=== PATIENT | male | born 1945 | race Caucasian/White ===

== ENCOUNTER 2023-12-08 05:58 | Emergency (ER) | payer MEDICARE, OTHER, BC, SELFPAY ==
[2023-12-08 06:02] VITALS: BP 159/106
--- NOTE | 2023-12-08 06:48 | ED.GENMED ---
History of Present Illness
General
Chief Complaint: Male Genito-Urinary Symptoms
Source: patient and spouse
Exam Limitations: none
Time Seen by Provider: 12/08/23 06:37
History of Present Illness
History of Present Illness:
Patient started yesterday with a feeling of urinary urgency. Voiding small amounts. Some episodes of spasm. No true abdominal pain no flank pain or back pain no fever. No history of same. Had a bowel movement yesterday.
Past History
Past History
ED Past Medical History: Hypercholesterolemia, Other (Psoriasis) and Other (Osteoporosis)
ED Past Surgical History: Orthopedic (Neck surgery)
Review of Systems
Review of Systems
All Other Systems: Not applicable
Constitutional: Denies fever
ABD/GI: Denies abdominal pain, vomiting or diarrhea
Phy Exam
Physical Exam
Physical Exam:
GENERAL: Alert and oriented in no apparent distress
EYE: Orbits normal.
NECK: Supple
CARDIAC: Regular rate and rhythm without any obvious murmurs.
LUNGS: Clear breath sounds,normal
ABDOMEN: Soft, some vague suprapubic fullness. No rebound or guarding no mass or hernia. Rectal exam with a large smooth prostate. No fecal matter.
NEUROLOGICAL: Alert and oriented , grossly non-focal
SKIN: Warm and dry, no rash or lesion, no discoloration, skin intact.
MUSCULOSKELETAL: No edema,no deformity.Good color
PSYCH: Normal and appropriate interaction.
Course
Orders/Labs/Results
Orders:
Orders
12/08/23 06:47
IV Insert/Care/Rem.- Treatment PRN
12/08/23 06:[address] Non Medication Order As Directed
Physician Order: bladder scan please
Above order entered?: Yes
12/08/23 07:24
Complete Blood Count/With Diff Urgent
Comprehensive Metabolic Panel Urgent
Lipase Urgent
Urinalysis Reflex To Culture Urgent
Date Specimen was Collected: 12/08/23
Time Specimen was Collected: 07:20
Urine Microscopic Reflex Cult Urgent
Urine Culture Urgent
HAILEE Source: U
Specimen Description:
Date Specimen was Collected: 12/08/23
Time Specimen was Collected: 07:20
12/08/23 09:01
Valentine Placement- Treatment ONCE
Reason for insertion: Acute Retention
12/08/23 10:40
CT Abd/Pel (IV only)-DH only Urgent
Comment:
Reason For Exam: Hematuria/lower abdominal pain
0.9% Sodium Chloride 1000 ml [Nss] 1,000 ml IV BOLUS
12/08/23 13:01
Ciprofloxacin HCl [Cipro] 500 mg PO NOW STA
Abnormal Lab Results
12/08/23
07:24
MCH 31.9 H pg
(27.0-31.0)
Absolute Lymphs (auto) 0.9 L 10^3/uL
(1.2-3.4)
Neutrophils % 77.6 H %
(42.2-75.2)
Lymphocytes % 16.8 L %
(20.5-51.1)
Glucose 129 H mg/dl
(70-99)
Leukocyte Esterase Rfl 1+ A
(Negative)
Urine RBC 3-6 A /HPF
(0-2)
Urine Bacteria (Reflex) Few A
(Negative)
12/08/23 07:24
12/08/23 07:24
Vital Signs
Initial and Last Documented VS:
Initial Vital Signs
Pulse Resp BP Pulse Ox
81 18 159/106 97
12/08/23 06:02 12/08/23 06:02 12/08/23 06:02 12/08/23 06:02
Last Documented Vital Signs
Temp Pulse Resp BP Pulse Ox
97.6 F 81 18 154/91 94
12/08/23 08:19 12/08/23 06:02 12/08/23 06:02 12/08/23 11:00 12/08/23 11:00
MDM/Problems Addressed
Differential Diagnosis Includes:
Urinary obstruction versus UTI versus prostatitis versus other pelvic process. Will get a bladder scan. If significantly distended will place catheter to see if her resolved symptoms. If bladder scan is unremarkable we will proceed to CT scan
*Radiology
Radiology exam reviewed: radiology read reviewed (No acute findings on CT. Patient has some findings with chronic bladder outlet issues, enlarged prostate, cysts in the kidneys.)
*Pulse Oximetry
Patient hypoxic: no
*Critical Care Note
Total Time (30-74mins, 75-104mins- exclusive of procedures): Not Applicable
Update Note
Update Note:
Patient still pacing and having to go urinate frequently but only dribbling small amount. Suspect urinary retention. Bladder ultrasound showed 270 cc. Labs stable. Will place Valentine and if this resolves his symptoms we have the answer. If not he
will receive a CT scan.
Patient is remained medically stable. No acute surgical findings on CT. Urine has cleared some. Still hematuria but no clots and no obstruction. Stable for discharge to follow-up. Copy of CT report given to .
ED Attending Note
-
Portions of this chart may have been created with voice recognition software.� Occasional wrong word or��sound alike� substitutions may have occurred due to the inherent limitations of voice recognition software.
Discharge Plan
Departure
Patient Disposition: Home (Routine Discharge)
Date of Disposition: 12/08/23
Time of Disposition: 13:03
Patient with high blood pressure during this ER visit?: Yes
Discharge Problem:
Urinary retention, Prostatic hypertrophy, Hematuria
Instructions: How to Care for Your Valentine Catheter, Male, Blood in the Urine (Hematuria), Adult (DC), Urinary Retention (DC), BLOOD PRESSURE
Prescriptions:
New
ciprofloxacin HCl 500 mg tablet
500 mg PO BID Qty: 14 0RF
tamsulosin [Flomax] 0.4 mg capsule
0.4 mg PO DAILY Qty: 20 0RF
Referrals:
UNKNOWN - PT DOES,NOT KNOW [Family Provider] -
Activity Restrictions/Additional Instructions:
Call your primary physician to arrange for urologic follow-up. Urology follow-up should be within the week
Interventions
Interventions:
*Risk Screen - Suicide Last Done: 12/08/23 06:02
*General Assessment Last Done: 12/08/23 06:02
*Neglect/Abuse Screening Last Done: 12/08/23 06:02
ED- Fall Risk Assessment Last Done: 12/08/23 06:02
*ED COVID-19 Vaccine History Last Done: 12/08/23 06:02
ED-Male Genitourinary Assessment Last Done: 12/08/23 07:21
Discharge Date and Time
Print Language: LUXEMBOURGER
[2023-12-08 07:21] VITALS: BMI 24.6
[2023-12-08 07:40] LABS: % Basophils 0.4 % (0-2); % Eosinophils 0.2 % (0-6); % Immature Granulocytes 0.2 % (0-0.5); % Lymphocytes 16.8 % (20.5-51.1); % Monocytes 4.8 % (1.7-9.3); % Neutrophils 77.6 % (42.2-75.2); Absolute Lymphocytes 0.9 10^3/uL (1.2-3.4); Absolute Monocytes 0.3 10^3/uL (0.1-0.6); Absolute Neutrophils 4.3 10^3/uL (1.4-6.5); Hematocrit 42.8 % (39.0-52.0); Hemoglobin 15.1 g/dL (13.0-18.0); Mean Corp Hgb Conc. 35.3 g/dL (33.0-37.0); Mean Corpuscular Hgb 31.9 pg (27.0-31.0); Mean Corpuscular Volume 90.3 fL (80.0-94.0); Nucleated Red Blood Cells % 0 % (-); Platelet Count 201 10^3/uL (130-400); Red Blood Cell Count 4.74 10^6/uL (4.70-6.10); Red Cell Dist. Width 13.3 % (11.5-14.5); White Blood Cell Count 5.6 10^3/uL (4.8-10.8)
[2023-12-08 07:48] LABS: Urine Albumin Negative (Neg - Trace); Urine Bilirubin Negative (Negative); Urine Character Clear (Clear); Urine Color Yellow; Urine Glucose Negative (Negative); Urine Ketone Negative (Negative); Urine Leukocyte 1+ (Negative); Urine Nitrite Negative (Negative); Urine Occult Blood Negative (Negative); Urine Urobilinogen Negative (Neg - 1+)
[2023-12-08 07:53] LABS: ALT (SGPT) 20 U/L (0-50); AST (SGOT) 35 U/L (17-59); Albumin 4.3 g/dl (3.5-5.0); Alkaline Phosphatase 61 U/L (38-126); Blood Urea Nitrogen 13 mg/dl (9-20); Calcium 9.8 mg/dl (8.4-10.2); Carbon Dioxide 25 mmol/L (22-30); Chloride 104 mmol/L (98-107); Estimated Creatinine Clearance 77 ml/min; Glucose 129 mg/dl (70-99); Lipase 97 U/L (23-300); Potassium 4.4 mmol/L (3.5-5.1); Sodium 140 mmol/L (135-145); Total Bilirubin 0.5 mg/dl (0.2-1.3); Total Protein 6.9 g/dl (6.3-8.2); eGFR > 60.00
[2023-12-08 08:16] VITALS: BP 162/99
[2023-12-08 08:21] LABS: Urine Squamous Cell 0-2 /LPF (Few)
[2023-12-08 08:22] LABS: Urine Bacteria Few (Negative)
[2023-12-08 09:10] VITALS: BP 160/97
[2023-12-08 10:00] VITALS: BP 154/90
[2023-12-08 11:00] VITALS: BP 154/91
[2023-12-08] MEDS: NSS 1000 IV (11:04)
[2023-12-08] MEDS: CIPRO 500 MG PO (13:33)
== END 2023-12-08 13:28 | disposition home or self-care (01) ==
LOC: EMR 05:58
PROVIDERS: EMERGENCY PHYSICIAN Emergency Medicine
DX: R33.9 Retention of urine, unspecified (principal); R40.1 Stupor; R31.9 Hematuria, unspecified; E78.00 Pure hypercholesterolemia, unspecified; M81.0 Age-related osteoporosis without current pathological fracture
CPT/HCPCS: 99284; 96360; 74177; 80053; 81003; 81015; 83690; 85025; 87086; Q9967

== ENCOUNTER 2023-12-08 15:53 | Emergency (ER) | payer MEDICARE, OTHER, BC, SELFPAY ==
[2023-12-08 16:00] VITALS: BP 153/96
--- NOTE | 2023-12-08 16:17 | EDRN ---
Kavin Andrews PA in to see pt at this time.
[2023-12-08 16:38] VITALS: BP 162/104; BMI 24.5
--- NOTE | 2023-12-08 16:43 | EDRN ---
Valentine catheter was irrigated w/ saline. Pt had some blood clots then cleared.
--- NOTE | 2023-12-08 16:54 | EDRN ---
This RN TT'renny Kenny. Darryl JARQUIN about irrigation of winn catheter results at this time.
--- NOTE | 2023-12-08 17:14 | EDRN ---
This RN TT'renny JARQUIN about pt and he replied that we will watch pt to see if he has any more leakage and give him water to drink
--- NOTE | 2023-12-08 17:42 | EDRN ---
Kavin JARQUIN in room w/ pt. Pt drank both cups of water and had no leaking.
--- NOTE | 2023-12-08 17:46 | ED.GENMED ---
History of Present Illness
General
Chief Complaint: Catheter/Tube Problem
Time Seen by Provider: 12/08/23 16:13
History of Present Illness
History of Present Illness:
78-year-old male presents due to leakage around his Valentine catheter. Patient had a catheter placed at this ER this morning due to urinary retention. Has had bloody urine output since that time. Was walking around when he noticed leakage and a
sensation of bladder fullness. He is not on any anticoagulants. He is visiting from out of the area and plans to return to [facility] tomorrow
Past History
Past History
ED Past Medical History: Hypercholesterolemia, Other (Psoriasis) and Other (Osteoporosis)
ED Past Surgical History: Orthopedic (Neck surgery)
Review of Systems
Review of Systems
Allergies reviewed?: Yes
All Other Systems: ROS reviewed and negative except as documented in HPI and ROS
Phy Exam
Physical Exam
Physical Exam:
GEN: Well appearing, NAD, WDWN
HEENT: Oral mucosa moist, no scleral icterus
Cardiac: Regular rate
Lung: No respiratory distress, no tachypnea
: Trace leakage of urine around the urethra, Valentine catheter with bloody urine
MSK: No gross deformity or injuries
Skin: Good color, no pallor or jaundice, no rashes
Neuro: AO x3, moves all extremities freely
Psych: Calm, cooperative
Course
Orders/Labs/Results
Orders:
Orders
12/08/23 19:15
Oxybutynin Chloride [Ditropan] 5 mg PO NOW STA
Vital Signs
Initial and Last Documented VS:
Initial Vital Signs
Pulse Resp BP Pulse Ox
95 20 153/96 99
12/08/23 16:00 12/08/23 16:00 12/08/23 16:00 12/08/23 16:00
Last Documented Vital Signs
Pulse Resp BP Pulse Ox
76 16 162/104 98
12/08/23 16:38 12/08/23 16:38 12/08/23 16:38 12/08/23 16:38
MDM/Problems Addressed
MDM/Problems Addressed:
Leakage likely due to clot retention/clogged cath, cath was irrigated successfully however prior to discharge the Valentine began to leak again. Catheter was upsized for a 22 Danish with good results.
*Critical Care Note
Total Time (30-74mins, 75-104mins- exclusive of procedures): Not Applicable
ED Attending Note
-
Portions of this chart may have been created with voice recognition software.� Occasional wrong word or��sound alike� substitutions may have occurred due to the inherent limitations of voice recognition software.
Discharge Plan
Departure
Patient Disposition: Home (Routine Discharge)
Date of Disposition: 12/08/23
Time of Disposition: 17:49
Patient with high blood pressure during this ER visit?: No
Discharge Problem:
Clot retention of urine
Instructions: How to Care for Your Valentine Catheter, Male
Prescriptions:
New
oxybutynin chloride 5 mg tablet
5 mg PO TID Qty: 30 0RF
No Action
ciprofloxacin HCl 500 mg tablet
500 mg PO BID Qty: 14 0RF
tamsulosin [Flomax] 0.4 mg capsule
0.4 mg PO DAILY Qty: 20 0RF
Interventions
Interventions:
*Risk Screen - Suicide Last Done: 12/08/23 16:38
*General Assessment Last Done: 12/08/23 16:38
*Neglect/Abuse Screening Last Done: 12/08/23 16:38
ED- Fall Risk Assessment Last Done: 12/08/23 16:43
*ED COVID-19 Vaccine History Last Done: 12/08/23 16:38
XG-Ewsqec-Dwzsonfihy Assessment Last Done: 12/08/23 16:38
ED-Male Genitourinary Assessment Last Done: 12/08/23 16:38
Discharge Date and Time
Print Language: CYPRIOT
--- NOTE | 2023-12-08 19:11 | EDRN ---
Discharge plan reviewed w/ pt w/ demo and return demo of changing leg bag to drainage bag and back w/ spouse. SPouse able to open and drain drainage bag and voiced comfort at changing them at night. Pt got up to side of stretcher and pt started
leaking blood again. Kavin JARQUIN was notified and is contacting urology at this time.
[2023-12-08] MEDS: DITROPAN 5 MG PO (19:19)
== END 2023-12-08 19:42 | disposition home or self-care (01) ==
LOC: EMR 15:53
PROVIDERS: EMERGENCY PHYSICIAN Emergency Medicine
DX: R33.8 Other retention of urine (principal); E78.00 Pure hypercholesterolemia, unspecified; M81.0 Age-related osteoporosis without current pathological fracture
CPT/HCPCS: 99282